=== PATIENT | male | born 2000 | race Caucasian/White ===

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

== ENCOUNTER 2021-12-07 18:04 | Emergency (ER) | payer MEDICAID ==
[2021-12-07 18:53] LABS: ESTIMATED GFR 111 mL/min (>60)
[2021-12-07] MEDS ORDERED: Potassium Chloride 10% 20 MEQ/15 ML Soln 15 ML UD Cup PO ONE (19:01)
[2021-12-07 19:28] VITALS: BP 144/71; PULSE 97
== END 2021-12-07 20:28 ==
LOC: JP.ED 18:04
DX: F15.10 Other stimulant abuse, uncomplicated (principal); Z20.822 Contact with and (suspected) exposure to COVID-19
CPT/HCPCS: 36415; 80053; 80305-QW; 80307; 81001; 85025; 99282; 99283; A9270-GY; U0002